=== PATIENT | male | born 1980 | race African-American/Black ===

== ENCOUNTER 2022-01-16 00:15 | Emergency (ER) | payer SELFPAY ==
[~2022-01-16] VITALS: Ht 180.3 cm; Wt 75.0 kg
[2022-01-16 00:17] VITALS: BP 136/80
[2022-01-16] MEDS ORDERED: ALBU2.5V8 IH (00:22)
--- NOTE | 2022-01-16 00:22 | PHYS DOC ---
Past Medical History Past Medical History: Asthma, Dementia Smoking Status: Current Every Day Smoker General Adult EDM: Chief Complaint: SHORTNESS OF BREATH HPI: HPI: Patient is a 41 year old male who called 911 dispatch because he was having trouble breathing. Dispatcher tried to get some information from the patient, patient did not want to answer anything so he hung up the phone. EMS arrival to his house, saw patient standing in front of his house smoking. Patient was in no acute distress Per EMS they brought him here, patient was walking from the ambulance base into the room without any problem. Patient denies any chest pain, no abdominal pain, no cough, no fever Review of Systems: Review of Systems: Constitutional: Denies fever or chills. [] Eyes: Denies change in visual acuity. [] HENT: Denies nasal congestion or sore throat. [] Respiratory: Denies cough, positive for shortness of air. Cardiovascular: Denies chest pain or edema. [] GI: Denies abdominal pain, nausea, vomiting, bloody stools or diarrhea. [] : Denies dysuria. [] Musculoskeletal: Denies back pain or joint pain. [] Integument: Denies rash. [] Neurologic: Denies headache, focal weakness or sensory changes. [] Endocrine: Denies polyuria or polydipsia. [] Lymphatic: Denies swollen glands. [] Psychiatric: Denies depression or anxiety. [] Heart Score: C/O Chest Pain: N/A Risk Factors: Risk Factors: DM, Current or recent (<one month) smoker, HTN, HLP, family history of CAD, obesity. Risk Scores: Score 0 - 3: 2.5% MACE over next 6 weeks - Discharge Home Score 4 - 6: 20.3% MACE over next 6 weeks - Admit for Clinical Observation Score 7 - 10: 72.7% MACE over next 6 weeks - Early Invasive Strategies Physical Exam: PE: Constitutional: Well developed, well nourished, no acute distress, non-toxic appearance. [] HENT: Normocephalic, atraumatic, bilateral external ears normal, oropharynx moist, no oral exudates, nose normal. [] Eyes: PERRLA, EOMI, conjunctiva normal, no discharge. [] Neck: Normal range of motion, no tenderness, supple, no stridor. [] Cardiovascular:Heart rate regular rhythm, no murmur [] Lungs & Thorax: Bilateral breath sounds clear to auscultation [] Abdomen: Bowel sounds normal, soft, no tenderness, no masses, no pulsatile masses. [] Skin: Warm, dry, no erythema, no rash. [] Back: No tenderness, no CVA tenderness. [] Extremities: No tenderness, no cyanosis, no clubbing, ROM intact, no edema. [] Neurologic: Alert and oriented X 3, normal motor function, normal sensory function, no focal deficits noted. [] Psychologic: Affect normal, judgement normal, mood normal. [] EKG: EKG: [] Radiology/Procedures: Radiology/Procedures: [] Course & Med Decision Making: Course & Med Decision Making Pertinent Labs and Imaging studies reviewed. (See chart for details) Patient is a 41-year-old male who present to ER for evaluation of trouble breathing. Patient is small prior to arrival to the ER here however his lung sounds were clear, patient was in no acute distress, patient was breathing normally, his oxygen saturation 100% on room air. His lung sounds exam was clear, symmetrical, no wheezing, no coarse, no crackles. There is no further work-up needed at this time for this patient. Patient be discharged home with a prescription for ProAir as needed for trouble breathing Angelina Disclaimer: Angelina Disclaimer: This electronic medical record was generated, in whole or in part, using a voice recognition dictation system. Departure Departure Impression: Primary Impression: Dyspnea Disposition: 01 HOME / SELF CARE / HOMELESS Condition: STABLE Patient Instructions: Shortness of Breath Additional Instructions: Please follow up with [facility] this week. [address], [address] [place] [address] Phone number: [phone] Scripts Albuterol Sulfate (PROAIR HFA INHALER) 8.5 Gm Hfa.aer.ad 2 PUFF IH PRN Q4-6HRS PRN for wheezing for 21 Days, #1 INHALER 0 Refills Prov: DORITA FERRER DO 01/16/22 DORITA FERRER DO January 16, 2022 00:22
== END 2022-01-16 00:25 | disposition home or self-care (01) ==
LOC: ER 00:15
DX: R06.02 Shortness of breath (principal); J45.909 Unspecified asthma, uncomplicated; F17.200 Nicotine dependence, unspecified, uncomplicated; F03.90 Unspecified dementia, unspecified severity, without behavioral disturbance, psychotic disturbance, mood disturbance, and anxiety
CPT/HCPCS: 99283